=== PATIENT | female | born 1970 | race Caucasian/White ===

== ENCOUNTER → 2017-09-23 | Outpatient (CLI) | payer OTHER ==
[~2017-09-23] MED LIST: NEUR300C PO; TRAZ1TAB14 PO
--- NOTE | 2017-09-24 13:28 | EKG ---
Date Performed: 09/23/2017 Time Performed: 12:16:02 PTAGE: 46 years EKG: Sinus rhythm . Short GA interval Borderline ECG NO PREVIOUS TRACING DOCTOR: Sherman Almanza Interpretating Date/Time 09/24/2017 13:25:05
== END ==
LOC: HRAD 11:49
PROVIDERS: ATTEND Psychiatry & Neurology Child & Adolescent Psychiatry
DX: F31.12 Bipolar disorder, current episode manic without psychotic features, moderate (principal); F41.1 Generalized anxiety disorder; R94.31 Abnormal electrocardiogram [ECG] [EKG]
CPT/HCPCS: 93005

== ENCOUNTER 2018-01-26 13:30 | Emergency (ER) | payer SELFPAY ==
[~2018-01-26] VITALS: Ht 149.9 cm; Wt 55.0 kg
[2018-01-26 13:40] VITALS: BP 183/94; PULSE 75; RESP 16; TEMP 98.6; O2SAT 99
--- NOTE | 2018-01-26 16:10 | PD ---
HPI Chief Complaint: Back/ Neck Pain or Injury Time Seen by Provider: 15:37 Travel History International Travel<30 days: No Contact w/Intl Traveler<30days: No Traveled to known affect area: No History of Present Illness HPI 47-year-old female presents to the emergency department with complaint of right- sided low back pain after a slip and fall 1 week ago. She has history of chronic low back pain 7 years, and is presenting me with a referral to pain management from her PCP, saying that she needs x-rays. She said when she did fall she hit the right side of her lower back. She denies encopresis, incontinence, saddle anesthesias. Denies fever, vomiting, abdominal pain. Denies IV drug use or cancer. Denies paresthesias, loss of sensation, decreased range of motion, decreased strength to all extremities. Is ambulatory in the room with a normal gait. Is making abrupt movements on and off the bed, and is very hyperactive, and does not appear to be in any excruciating pain. Says she has been taking ibuprofen and using heat and cold compresses for pain management. Rates her pain 10/10. Aggravated with movement. No known relieving factors. No known allergies. Primary care provider is Dr. Lema. History of hypertension. Has no other medical complaints. No other modifying factors or associated signs and symptoms. PFSH Social History Tobacco Use: No Allergies-Medications (Allergen,Severity, Reaction): Coded Allergies: No Known Allergies (Verified Allergy, Unknown, 01/26/18) Reported Meds & Prescriptions Reported Meds & Active Scripts Active Ibuprofen 800 Mg Tab 800 Mg PO Q6HR PRN Robaxin (Methocarbamol) 500 Mg Tab 500 Mg PO QID PRN Reported Neurontin (Gabapentin) 300 Mg Cap 300 Mg PO HS Trazodone (Trazodone HCl) 150 Mg Tablet 150 Mg PO HS Review of Systems Except as stated in HPI: all other systems reviewed are Neg Physical Exam Narrative GENERAL: Well-nourished, well-developed female patient, in no acute distress; afebrile, nontoxic-appearing; very hyperactive during physical exam SKIN: Warm and dry. HEAD: Atraumatic. Normocephalic. EYES: Pupils equal and round. No scleral icterus. No injection or drainage. ENT: Mucosa pink and moist. Airway patent. NECK: Trachea midline. CARDIOVASCULAR: Regular rate. RESPIRATORY: No accessory muscle use. GASTROINTESTINAL: Rounded. MUSCULOSKELETAL: Bilateral lower extremities supple and non-tense with 2+ pedal pulses and sensory intact; with full range of motion and 5/5 strength. 2 + DTRs bilaterally. Active dorsiflexion and extension of bilateral feet. Bilateral straight leg raise is negative for low back pain. Ambulatory in room with normal gait. Sitting up in bed at 90. No obvious deformities. No clubbing. No cyanosis. No edema. BACK: No midline point tenderness on palpation of the lumbar spine. Tenderness on palpation of right lumbar iliosacral area. No obvious deformities. NEUROLOGICAL: Awake and alert. Oriented 3. No obvious cranial nerve deficits. Motor grossly within normal limits. Normal speech. Moves all extremities. 5/5 strength to all extremities. Sensory intact. PSYCHIATRIC: Appropriate mood and affect; insight and judgment normal. Data Data Last Documented VS Vital Signs Date Time Temp Pulse Resp B/P (MAP) Pulse Ox O2 Delivery O2 Flow Rate FiO2 01/26/18 13:40 98.6 75 16 183/94 (123) 99 Orders Orders Methocarbamol (Robaxin) (01/26/18 16:15) Ibuprofen (Motrin) (01/26/18 16:15) Ed Discharge Order (01/26/18 16:20) [facility] Medical Decision Making Medical Screen Exam Complete: Yes Emergency Medical Condition: Yes Medical Record Reviewed: Yes Differential Diagnosis Acute exacerbation of chronic low back pain, low back strain, muscle spasm of back, contusion of back Narrative Course 47-year-old female, with history of chronic low back pain with acute exacerbation of chronic low back pain and muscle strain of the right-sided lower back. Says she fell a week ago injuring her back. She has no midline tenderness on palpation of the lumbar spine. Patient is ambulatory in the room with a normal gait. She is very hyperactive and is making abrupt movements on and off of the bed, without any obvious exacerbated pain. She has a referral to pain management. She denies encopresis, incontinence, saddle anesthesias. Denies IV drug use or cancer. I do not suspect acute spinal injury and feel that imaging is not necessary at this time. Ibuprofen and Robaxin administered in the ER. Ibuprofen and Robaxin prescribed for home. Instructed patient to follow-up with pain management, per referral. I also instructed the patient to follow-up with primary care provider in regards to her high blood pressure, despite her taking her medications, for blood pressure management. instructed patient to follow up with primary care provider. Patient verbalizes understanding and agreement with treatment plan. Patient is medically cleared and stable for discharge. Discussed reasons to return to the emergency department. Patient agrees with treatment plan. The patients vital signs are stable and the patient is stable for outpatient follow-up and treatment. Patient discharged home, stable and in no acute distress. Diagnosis Primary Impression: Acute exacerbation of chronic low back pain Additional Impression: Strain of muscle, fascia and tendon of lower back, initial encounter Referrals: [facility] Primary Care Physician Patient Instructions: Chronic Back Pain (ED), General Instructions, Low Back Strain (ED), Muscle Strain (ED) Additional Instructions: Tylenol or ibuprofen as directed and as needed for pain Robaxin as prescribed and as needed for muscle spasms Heating pad and/or ice to affected area to reduce pain Avoid aggravating activities; increase activity as tolerated Follow-up with primary care provider Follow-up with pain management Return to emergency department immediately with worsening of symptoms Med/Other Pt SpecificInfo: Prescription(s) given Scripts Ibuprofen (Ibuprofen) 800 Mg Tab 800 MG PO Q6HR Y for PAIN, #20 TAB 0 Refills Prov: Keyonna Dc 01/26/18 Methocarbamol (Robaxin) 500 Mg Tab 500 MG PO QID Y for MUSCLE SPASM, #30 TAB 0 Refills Prov: Keyonna Dc 01/26/18 Disposition: 01 DISCHARGE HOME Condition: Stable Keyonna Dc Jan 26, 2018 16:10
[2018-01-26] MEDS ORDERED: METHOCARBAMOL 500 MG TAB PO ONE (16:15)
[2018-01-26] MEDS ORDERED: IBUPROFEN 800 MG TAB PO ONE (16:15)
[2018-01-26] MEDS ORDERED: ROBA500T PO (16:23)
[2018-01-26] MEDS ORDERED: IBUP1TAB7 PO (16:23)
== END 2018-01-26 17:01 | disposition home or self-care (01) ==
LOC: NEPK 13:30
DX: M54.5 Low back pain (principal); G89.29 Other chronic pain; S39.012A Strain of muscle, fascia and tendon of lower back, initial encounter; I10 Essential (primary) hypertension; Z79.899 Other long term (current) drug therapy; W01.0XXA Fall on same level from slipping, tripping and stumbling without subsequent striking against object, initial encounter
CPT/HCPCS: 99283